=== PATIENT | female | born 1950 | race Caucasian/White ===

== ENCOUNTER 2016-10-21 14:30 | Emergency (ER) | payer MEDICARE, MEDICAID ==
[~2016-10-21] VITALS: Ht 162.6 cm; Wt 63.6 kg
[~2016-10-21 14:30] MED LIST: AMAN100T PO; ASCO100T11 PO; ASPI-351 PO; BAC10 PO; CALCIUM; CLOP75TA14 PO; DOCU-42 PO; INSLIS SQ; ISOS30TA PO; LISI2.5T66 PO; LOPRESSOR25 MG PO; Magnesium PO; OMEG1CAP27 PO; PHEN200T16 PO; POLY1PAC PO; ROSU40TA PO; VIT B COMPLEX; Vicodin; [UNRECOGNIZED DRUG - CODE] PO; [UNRECOGNIZED DRUG - CODE] SL; [UNRECOGNIZED DRUG - CODE] SQ; [UNRECOGNIZED DRUG - CODE] SQ
[2016-10-21 14:38] VITALS: BP 133/62; PULSE 59; RESP 12; O2SAT 94
--- NOTE | 2016-10-21 15:11 | ED.REPORT ---
HPI- Female Date of Service Oct 21, 2016 ED Provider: Fercho Hendrix MD Pt is a completely bedridden 66 year old female with a history of MS and hypertension who presents to the ED via EMS with increased hematuria. The pt admits to cough, but she denies fever and SOB. She indicated that the cough is normal and she is on 24 hour oxygen for her MS. Per daughter there has always been some blood with sediment in her urine for years, but there is more blood than normal today. Pt typically gets up 1 or 2 times a week in a wheelchair to get her hair washed, but she indicated that being upright is too fatiguing for her. Pt is taking medication to control her blood pressure. She reported that she can "feel her urine going to the wrong place," indicating that is has been going through her urethra since this morning rather than the catheter. The catheter is 2 weeks old and typically gets replaced every 3 weeks. Nursing Notes Stated Complaint: BLOOD IN CATH Chief Complaint: General Complaint Nursing Notes Reviewed: Yes Allergies: Coded Allergies: TAPE (Verified Allergy, Intermediate, Rash, 09/30/09) atorvastatin (Verified Allergy, Intermediate, myalgia, 03/13/09) Scheduled ([Magnesium]) 250 MG PO evening ([Vit B Complex]) DAILY ([Calcium]) 500 MG BID ([Vicodin]) 1 Q3-4HP 5/500 strength. Take if needed for pain. Amantadine-Expunged Drug, Do Not Renew! (Amantadine-Expunged Drug, Do Not Renew! ) 100 Mg Tablet 100 MG PO BID *Take two in the morning and one in the evening* Ascorbic Acid-Expunged Drug, Do Not Renew! (Vitamin C-Expunged Drug, Do Not Renew!) 100 Mg Tablet 1,000 MG PO DAILY Aspirin-Expunged Drug, Do Not Renew! (Aspirin-Expunged Drug, Do Not Renew!) 325 Mg Tablet 325 MG PO DAILY Baclofen-Expunged Drug, Do Not Renew! (Baclofen-Expunged Drug, Do Not Renew!) 10 Mg Tablet 10 MG PO every 3 hours Take every 3 hours Clopidogrel-Expunged Drug, Do Not Renew! (Plavix-Expunged Drug, Do Not Renew!) 75 Mg Tablet 75 MG PO AM Diltiazem-Expunged Drug, Do Not Renew! (Diltiazem-Expunged Drug, Do Not Renew!) 30 Mg Tablet 30 MG PO TID Docusate Sod-Expunged Drug, Do Not Renew! (Docusate Sod-Expunged Drug, Do Not Renew!) 100 Mg Capsule 100 MG PO BID Insulin Lispro-Expunged Drug, Do Not Renew! (Humalog-Expunged Drug, Do Not Renew !) 100 U/Ml Vial U SQ per patient 30-50 Units with meals depending on blood sugar Insulin NPH-Expunged Drug, Do Not Renew! (Weubxvu-C-Sjooqoxt Drug, Do Not Renew! ) 100 Unit/Ml Unit 100 U SQ BID NEW CHANGE Interferon Beta-1B (Betaseron) 0.3 Mg Kit 0.3 MG SQ QOD Spouse administers. Dose due May 14. Isosorbide [place]-Expunged Drug, Do Not Renew! (Imdur-Expunged Drug, Do Not Renew! ) 30 Mg Tab.sr.24h 30 MG PO AM Lisinopril-Expunged Drug, Do Not Renew! (Lisinopril-Expunged Drug, Do Not Renew! ) 2.5 Mg Tablet 2.5 MG PO NOON DO NOT take if blood pressure (top number) is below 100. Metoprolol Tart-Expunged Drug, Do Not Renew! (Metoprolol Tart-Expunged Drug, Do Not Renew!) 25 Mg Tab 50 MG PO TID [place]-3/Dha/Epa/Fish Oil-Expunged Drug, Do No (Fish Oil 1,000 Mg-Expunged Drug, Do Not Renew) 1 Each Capsule 1 EACH PO DAILY 1200mg daily PEG 3350-Expunged Drug, Do Not Renew! (MIRALAX-Expunged Drug, Do Not Renew!) 17 Gm/Pkt Packet 17 GM PO DAILY Phenazopyridine-Expunged Drug, Do Not Renew! (Pyridium-Expunged Drug, Do Not Renew!) 200 Mg Tablet 200 MG PO TID Rosuvastatin-Expunged Drug, Do Not Renew! (Crestor-Expunged Drug, Do Not Renew! ) 40 Mg Tablet 40 MG PO each evening Scheduled PRN Nitroglycerin-Expunged Drug, Do Not Renew! (Nitroglycerin SL-Expunged Drug, Do Not Renew!) 0.4 Mg Subl 0.4 MG SL PRN Take as directed if needed for chest pain. General Time Seen by MD: 14:39 Chief Complaint Blood in urine Hx Obtained From: Patient Arrived By: Walk-in Sudden in Onset?: No Onset Occurred: 5 - 8 hours ago Symptom Duration: Since onset Severity: Current: No pain currently Severity: Maximum: No pain Recent Healthcare: No recent doctor visit, No recent hospitalization Similar Sx Previous: No Past Medical History Past Medical History Heart attack Anxiety Depression MS - bedridden Catheter Reports: Congestive heart failure, Hypertension Past Surgical History Tubal S/p cath Reports: (x2), Tonsillectomy Smoking History Never Smoker Social History Alcohol Use: Denies alcohol use Drug Use: Denies drug use Other Social History: Good social support Ambulatory Status Independent Review of Systems Constitutional: Denies: Fever Female: Reports: Hematuria Complete sys rev & neg: except as marked. Respiratory: Reports: Non-productive cough, Denies: Shortness of breath Physical Exam Initial Vital Signs Vital Signs (First) Date Time Temp Pulse Resp B/P Pulse Ox O2 Delivery O2 Flow Rate FiO2 10/21/16 14:38 36.4 59 12 133/62 94 Room Air Initial VS: Reviewed Head / Eyes: Atraumatic, Normocephalic, PERRL ENT: Mucous membranes moist, Conjunctiva normal, No scleral icterus Neck: Supple, Full range of motion Respiratory: Breath sounds normal, Clear to auscultation, No respiratory distress Cardiovascular: Regular rate & rhythm, Heart sounds normal, Intact distal pulses Extremities: Vascular intact, Neuro intact Neurologic: Alert, Oriented, Nonfocal Psychiatric: Mood/affect normal, Behavior normal Female Genitourinary: Exam deferred General/Constitutional: Awake, Alert, Cooperative, Not toxic appearing Significant muscle wasting Pallid Wasted appearance Abdomen: Atraumatic, Soft, Non-tender Suprapubic catheter in abdomen without surrounding erythema Skin: Atraumatic, No rash, Warm, Dry, Intact Interpretation & Diagnostics Lab Results Interpretation Result Diagram: 10/21/16 1539 10/21/16 1539 Test 10/21/16 15:39 10/21/16 16:00 White Blood Count 5.0th/mm3 (3.8-10.1) Red Blood Count 4.24mil/mm3 (3.90-5.20) Hemoglobin 10.5g/dL (12.0-15.6) Hematocrit 35.7% (35.0-46.0) Mean Corpuscular Volume 84.2fL (81-100) Mean Corpuscular Hemoglobin 24.8pg (27.0-35.0) Mean Corpuscular Hemoglobin Concent 29.4% (32.0-37.0) Red Cell Distribution Width 19.6% (12.3-15.4) Platelet Count 183bil/L (150-400) Neutrophils (%) (Auto) 52.7% (40-74) Lymphocytes (%) (Auto) 27.5% (14-46) Monocytes (%) (Auto) 14.0% (4-12) Eosinophils (%) (Auto) 5.2% (0-5) Basophils (%) (Auto) 0.4% (0-3) Sodium Level 138mEq/L (134-144) Potassium Level 4.5mEq/L (3.5-5.2) Chloride Level 102mEq/L (97-108) Carbon Dioxide Level 25mmol/L (18-29) Blood Urea Nitrogen 22mg/dL (8-27) Creatinine 1.10mg/dL (0.57-1.00) Estimat Glomerular Filtration Rate 71mL/min (>59) Glucose Level 207mg/dL (60-99) Calcium Level 9.4mg/dL (8.5-10.1) Magnesium Level 2.1mg/dL (1.6-2.6) Total Bilirubin 0.2mg/dL (0.0-1.2) Aspartate Amino Transf (AST/SGOT) 19U/L (0-50) Alanine Aminotransferase (ALT/SGPT) 29U/L (0-32) Alkaline Phosphatase 51U/L (25-165) Total Protein 6.9g/dL (6.4-8.4) Albumin 3.6g/dL (3.4-5.0) Hold Bullock Top Tube Received (Received) Urine Color Yellow (YELLOW) Urine Appearance Clear (CLEAR,HAZY) Urine pH 5.5 (5.0-8.0) Urine Specific [place] 1.025 (1.003-1.035) Urine Protein 300mg/dL (NEG,TRACE) Urine Glucose (UA) 250mg/dL (NEGATIVE) Urine Ketones Tracemg/dL (NEGATIVE) Urine Occult Blood Large (NEGATIVE) Urine Nitrite Positive (NEGATIVE) Urine Bilirubin Negative (NEGATIVE) Urine Urobilinogen 1.0mg/dL (NORMAL) Urine Leukocyte Esterase Small (NEGATIVE) Urine RBC 11-50/hpf (0-2) Urine WBC 6-10/hpf (0-5) Urine Epithelial Cells None/hpf (NONE-MOD) Urine Crystals None seen (NONE SEEN) Urine Bacteria Many/hpf (NONE-FEW) Urine Hyaline Casts None/lpf (NONE) Urine Granular Casts None seen (NONE SEEN) Urine Waxy Casts None seen (NONE SEEN) Urine Red Blood Cell Casts None seen (NONE SEEN) Urine White Blood Cell Casts None seen (NONE SEEN) Urine Mucus None seen (None Seen) Urine Trichomonas None seen (NONE SEEN) Urine Yeast None (NONE SEEN) Urinalysis Comment None Urine Culture Reflexed Indicated Re-Eval/Medical Decision Source of Hx: Old records Re-Evaluation/Progress : Time of Eval: 17:00 Re-Evaluation/Progress Note: Pt rechecked. Informed pt of plan for discharge. Pt understands and agrees with plan for discharge. F/U instructions and RTER warnings given. All questions addressed. Consultation : Referral / Consult Name: Wero Goncalves MD Consulted With: Primary care physician Call Returned at: 17:16 Rn Resource Nurse: Agrees with eval, Agrees with plan Note: Strongly discourages the use of empiric antibiotics in this setting. Recommends catheter changed tomorrow. Family says they can arrange this through [facility]. Counseled Regarding: Diagnosis, Lab results, Need for follow-up, When/why to return to ED Discharge & Departure Impression: Primary Impression: Urinary catheter in place Disposition: Home Discharge Condition All VS Reviewed: Yes Condition: Stable Patient Instructions: Urinary Tract Infection in Women (ED) Additional Instructions: Your labs were normal other than the urine. Your hemoglobin A1C lab test is pending and will be available for your primary care doctor. Dr. Goncalves strongly urges me not to prescribe antibiotics in this setting but rather to have the catheter changed as soon as possible. Follow up with your primary care provider later this week or early next week. Follow up with your urologist as scheduled. Return to the Emergency Department for back pain, fever, vomiting, confusion, trouble breathing or any other concerning symptoms. Referrals: Wero Goncalves MD (PCP) [facility] Attestation Portions of this note were transcribed by Miguel Angel Lomas and Ana Maria Walton. I, Dr. Hendrix personally performed the history, physical exam and medical decision-making; I reviewed and confirmed the accuracy of the information in the transcribed note. Signed by: Miguel Angel Lomas and Isabelle Finney, 10/21/16 and 17:50. copies to: Wero Goncalves MD, Kirk H MD Oct 21, 2016 15:11 Ana Maria Rodriguez Oct 21, 2016 15:20 MIGUEL ANGEL LOMAS Oct 21, 2016 17:45
[2016-10-21 15:52] LABS: BASOPHILS % (AUTO) 0.4 % (0-3); EOSINOPHILS % (AUTO) 5.2 % (0-5); Mean Corpuscular Hemoglobin 24.8 pg (27.0-35.0); Mean Corpuscular Volume 84.2 fL (81-100); NEUTROPHILS % (AUTO) 52.7 % (40-74); Platelet Count 183 bil/L (150-400)
[2016-10-21 16:15] LABS: Magnesium 2.1 mg/dL (1.6-2.6)
[2016-10-21 16:28] LABS: APPEARANCE,URINE CLEAR (CLEAR,HAZY); COLOR,URINE YELLOW (YELLOW); OCCULT BLOOD,URINE LARGE (NEGATIVE); PH,URINE 5.5 (5.0-8.0)
[2016-10-21 17:48] VITALS: BP 130/61; PULSE 61; RESP 16; O2SAT 99
== END 2016-10-21 18:02 | disposition home or self-care (01) ==
LOC: SED 14:30 → EDBD 14:30 → SED 18:02
DX: R31.9 Hematuria, unspecified (principal); R05 Cough; B96.20 Unspecified Escherichia coli [E. coli] as the cause of diseases classified elsewhere; G35 Multiple sclerosis; I10 Essential (primary) hypertension; F41.9 Anxiety disorder, unspecified; F32.9 Major depressive disorder, single episode, unspecified; I25.2 Old myocardial infarction; I50.9 Heart failure, unspecified; E11.9 Type 2 diabetes mellitus without complications; Z96.0 Presence of urogenital implants; Z99.81 Dependence on supplemental oxygen; Z74.01 Bed confinement status; Z93.6 Other artificial openings of urinary tract status; Z79.4 Long term (current) use of insulin; Z79.82 Long term (current) use of aspirin; Z88.8 Allergy status to other drugs, medicaments and biological substances